=== PATIENT | female | born 1980 | race Caucasian/White ===

== ENCOUNTER 2019-06-29 13:10 | Outpatient (CLI) | payer OTHER, MEDICARE ==
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
--- NOTE | 2019-06-29 16:39 | Diagnostic Imaging Report ---
ERNESTO PARISH [facility] [address] [facility].[address] [address] Report Submission Date: Jun 29, 2019 4:35:42 PM CDT Patient Study Name: MISTY FEBRUARY Date: Jun 29, 2019 3:02:05 PM CDT Modality Type: DX Gender: F Description: L SPINE 4 VIEWS : 81 Institution: [facility] Physician: ERNESTO PARISH Exam: Lumbar spine. History: Pain. AP, lateral, both oblique views and L5-S1 spot view of the lumbar spine are submitted. Interbody fusion of L4-5 and L5-S1 levels are noted. The remaining vertebral body heights and intervertebral disc spaces are adequately maintained and in good alignment. No spondylolisthesis or spondylolysis is identified. Impression: Interbody fusion of L4-5 and L5-S1 levels. No other bony abnormalities are noted. Electronically signed on Jun 29, 2019 4:35:42 PM CDT by: Bart SPARROW
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
== END 2019-06-29 13:50 ==
LOC: OUT 13:10
PROVIDERS: ATTEND Nurse Practitioner Adult Health
DX: M54.16 Radiculopathy, lumbar region (principal); M47.817 Spondylosis without myelopathy or radiculopathy, lumbosacral region; M54.2 Cervicalgia; G44.89 Other headache syndrome
CPT/HCPCS: 72170; 99203

== ENCOUNTER 2019-07-05 22:13 | Emergency (ER) | payer OTHER, MEDICARE ==
[2019-07-05 22:47] VITALS: BP 112/68
[2019-07-06] MEDS: MAG HYDROX/ALUMINUM HYD/SIMETH 30 ML, Lidocaine 2% Viscous 15 ML PO ONE ×2
--- NOTE | 2019-07-06 00:46 | ED Physician Documentation ---
General Adult - HISTORIAN Historian: patient - HPI Stated Complaint: abd pain Chief Complaint: General Adult Timing: still present Severity: moderate Further Comments: yes (Pt is a 38 yo female with abd pain.) - ROS CONST: no problems EYES/ENT: none CVS/RESP: none GI/: abdominal pain, nausea MS/SKIN/LYMPH: none - PAST HX Past History: other (anxiety, chronic pain, depression, GERD) Allergies/Adverse Reactions: Allergies Allergy/AdvReac Type Severity Reaction Status Date / Time diphenhydramine Allergy Verified 07/05/19 22:42 [From Benadryl] iodine Allergy Verified 07/05/19 22:42 Home Medications: Ambulatory Orders Medication Instructions Recorded Alprazolam [Xanax] 1 tab PO PRN PRN 07/05/19 Hydromorphone HCl [Dilaudid] 1 tab PO PRN PRN 07/05/19 Ibuprofen [Advil] 1 tab PO PRN PRN 07/05/19 Omeprazole 2 cap PO DAILY 07/05/19 - SOCIAL HX Smoking History: cigarettes - FAMILY HX Family History: No - VITAL SIGNS Vital Signs: Vital Signs Temp Pulse Resp BP Pulse Ox 98.4 F 64 16 112/68 99 07/05/19 22:30 07/05/19 22:30 07/05/19 22:30 07/05/19 22:30 07/05/19 22:30 - REVIEWED ASSESSMENTS Nursing Assessment Reviewed: Yes Vitals Reviewed: Yes Progress - Progress Progress: GI cocktail no change x-ray abd: L4 through S1 interbody fusions, cholecystectomy clips, and mild constipation are observed. There is no evidence of bowel obstruction. Indeterminate pelvic calcifications are too small to characterize. Rx Magnesium Citrate (for constipation). Drink 1/2 bottle. If no bowel movement after 6 hours, repeat drinking 1/2 bottle. (bottle sent home with pt.) ED Results Lab/Radiology - Orders Orders: ED Orders Category Date Time Status Place IV Lock 1T Care 07/05/19 22:47 Active CBC/PLATELET/DIFF Routine Lab 07/05/19 23:10 Received CMP Routine Lab 07/05/19 23:10 Received LIPASE Stat Lab 07/05/19 23:10 Received URINALYSIS Routine Lab 07/05/19 Ordered URINE HCG Stat Lab 07/05/19 Uncollected Mag Hydrox/Aluminum Hyd/Simeth [Mylanta] 30 ml Med 07/05/19 23:53 Discontinued Lidocaine 2% Viscous [Xylocaine 2% Viscous] 15 ml PO NOW General Adult Physical Exam - PHYSICAL EXAM GENERAL APPEARANCE: mild distress EENT: pharynx normal NECK: normal inspection, supple RESPIRATORY: no resp distress, chest non-tender, breath sounds normal CVS: reg rate & rhythm, heart sounds normal ABDOMEN: soft, tenderness (RUQ), decreased BS BACK: normal inspection, no CVA tenderness SKIN: warm/dry, normal color EXTREMITIES: non-tender, normal range of motion, no evidence of injury NEURO: oriented X3, motor nml, sensation nml Discharge Clincal Impression: abd pain, constipation Referrals: Anne Marie Richard NP [Primary Care Provider] - Condition: Stable Disposition: 01 HOME, SELF-CARE Decision to Admit: NO Decision Time: 01:35
--- NOTE | 2019-07-06 01:30 | Diagnostic Imaging Report ---
KD BAI [facility] [address] [facility] [address] [address] Report Submission Date: Jul 06, 2019 1:26:27 AM CDT Patient Study Name: MISTY FEBRUARY Date: Jul 06, 2019 12:45:47 AM CDT Modality Type: DX Gender: F Description: ABDOMEN 1VIEW : 81 Institution: [facility] Physician: KD BAI Single view abdomen History: Abdominal pain Findings: L4 through S1 interbody fusions, cholecystectomy clips, and mild constipation are observed. There is no evidence of bowel obstruction. Indeterminate pelvic calcifications are too small to characterize. Electronically signed on Jul 06, 2019 1:26:27 AM CDT by: Delta SPARROW
[2019-07-06] MEDS: MAGNESIUM CITRATE 296 ML BOTTLE PO ONE (01:40)
[2019-07-06 06:58] LABS: BASOPHILS % 0.8 % (0.0-1.5); NEUTROPHILS # 4.4 # k/uL (1.4-7.7)
[2019-07-06 06:59] LABS: eGFR (Non-African) > 60
[2019-07-06 07:06] LABS: APPEARANCE,URINE CLEAR (CLEAR); COLOR,URINE YELLOW (YELLOW); OCCULT BLOOD,URINE 3+ (NEGATIVE); UROBILINOGEN URINE 0.2 Eu (0.2-1.0)
== END 2019-07-06 01:44 | disposition home or self-care (01) ==
LOC: ED 22:13
DX: K59.00 Constipation, unspecified (principal)
CPT/HCPCS: 74018; 80053; 81002; 81025; 83690; 85025; 99284; A9270-GY; S1016

== ENCOUNTER 2019-08-08 14:32 | Outpatient (CLI) | payer OTHER, MEDICARE ==
[2019-08-08 16:24] LABS: BASOPHILS % 0.5 % (0.0-1.5); NEUTROPHILS # 4.4 # k/uL (1.4-7.7)
[2019-08-08 16:38] LABS: eGFR (Non-African) > 60
== END 2019-08-08 15:00 ==
LOC: OUT 14:32
PROVIDERS: ATTEND Physical Medicine & Rehabilitation
DX: M99.15 Subluxation complex (vertebral) of pelvic region (principal); M47.814 Spondylosis without myelopathy or radiculopathy, thoracic region; G44.89 Other headache syndrome
CPT/HCPCS: 36415; 80053; 80307; 85025; 99202

== ENCOUNTER 2019-08-14 11:43 | Day surgery (SDC) | payer OTHER, MEDICARE ==
[~2019-08-14 11:43] MED LIST: DEXAMETHASONE SODIUM PHOSPHATE 10 MG/ML VIAL ONE; KETOROLAC TROMETHAMINE 30 MG/1ML VIAL ONE; LACTATED RINGERS 1,000 ML IV.SOLN IV ONE; LIDOCAINE HCL 2% PF 100MG/5ML VIAL IJ ONE; MIDAZOLAM HCL 2 MG/2 ML VIAL ONE; ONDANSETRON HCL/PF 4 MG/ 2ML VIAL ONE; PROPOFOL 200 MG/20 ML VIAL IV ONE; SEVOFLURANE 250 ML LIQUID IH ONE; ePHEDrine SULFATE 50 MG/1 ML IVP ONE; fentaNYL CITRATE/PF 100 MCG/2 ML INJ. ONE
== END 2019-08-14 14:50 | disposition home or self-care (01) ==
LOC: OPSURG 11:43
PROVIDERS: ATTEND Chiropractor
DX: M99.05 Segmental and somatic dysfunction of pelvic region (principal); M99.06 Segmental and somatic dysfunction of lower extremity; M70.61 Trochanteric bursitis, right hip; M47.27 Other spondylosis with radiculopathy, lumbosacral region; M47.21 Other spondylosis with radiculopathy, occipito-atlanto-axial region; M47.814 Spondylosis without myelopathy or radiculopathy, thoracic region
CPT/HCPCS: 22505; 27198; 27275; J1885; J2001; J2250; J2405; J2704; J3010; J7120

== ENCOUNTER 2019-08-15 11:56 | Day surgery (SDC) | payer OTHER, MEDICARE ==
[~2019-08-15 11:56] MED LIST changes: -ePHEDrine SULFATE 50 MG/1 ML IVP ONE
== END 2019-08-15 15:03 | disposition home or self-care (01) ==
LOC: OPSURG 11:56
PROVIDERS: ATTEND Chiropractor
DX: M99.05 Segmental and somatic dysfunction of pelvic region (principal); M70.61 Trochanteric bursitis, right hip; M99.06 Segmental and somatic dysfunction of lower extremity; M47.27 Other spondylosis with radiculopathy, lumbosacral region; M47.21 Other spondylosis with radiculopathy, occipito-atlanto-axial region; M47.814 Spondylosis without myelopathy or radiculopathy, thoracic region
CPT/HCPCS: 22505; 27198; 27275; J1885; J2001; J2250; J2405; J2704; J3010; J7120

== ENCOUNTER 2019-08-16 10:44 | Day surgery (SDC) | payer OTHER, MEDICARE ==
[~2019-08-16 10:44] MED LIST changes: +ePHEDrine SULFATE 50 MG/1 ML IVP ONE
== END 2019-08-16 13:45 | disposition home or self-care (01) ==
LOC: OPSURG 10:44
PROVIDERS: ATTEND Chiropractor
DX: M99.05 Segmental and somatic dysfunction of pelvic region (principal); M99.06 Segmental and somatic dysfunction of lower extremity; M70.61 Trochanteric bursitis, right hip; M47.27 Other spondylosis with radiculopathy, lumbosacral region; M47.21 Other spondylosis with radiculopathy, occipito-atlanto-axial region; M47.814 Spondylosis without myelopathy or radiculopathy, thoracic region
CPT/HCPCS: 22505; 27198; 27275; J1885; J2001; J2250; J2405; J2704; J3010; J7120

== ENCOUNTER 2019-08-22 14:48 | Outpatient (CLI) | payer OTHER, MEDICARE ==
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
== END 2019-08-22 16:20 | disposition home or self-care (01) ==
LOC: OUT 14:48
PROVIDERS: ATTEND Physical Medicine & Rehabilitation
DX: G89.4 Chronic pain syndrome (principal); M54.16 Radiculopathy, lumbar region; M46.96 Unspecified inflammatory spondylopathy, lumbar region; M54.2 Cervicalgia; R51 Headache; F11.20 Opioid dependence, uncomplicated
CPT/HCPCS: 99214

== ENCOUNTER 2019-09-12 15:19 | Outpatient (CLI) | payer OTHER, MEDICARE ==
--- NOTE | 2019-09-12 16:39 | Diagnostic Imaging Report ---
PATIENT MR#: [id number] PATIENT PATIENT NAME: MISTYFebruary DATE OF : 1980 REFERRING PHYSICIAN: Edenilson Del Rio EXAM DATE: 09/12/2019 ACCESSION NUMBER: [id number] EXAM DESCRIPTION: US U OR L EXT VEINS UNILAT Exam: Left lower extremity venous Doppler study. History: Pain in left calf. Doppler interrogation and color Doppler imaging of the venous structures in the left lower extremity are submitted. Spectral Doppler analysis demonstrates spontaneous and augmentable venous flow. Color Doppler imagin g reveals no thrombus formation. Impression: No sonographic evidence of deep vein thrombosis. Read by: Dr. Bart Ramirez Transcribed by: Transcribed Date: Electronically signed by: Dr. Bart Ramirez Date signed: 09/12/2019 4:38:30 PM
== END 2019-09-12 15:29 | disposition home or self-care (01) ==
LOC: RAD 15:19
PROVIDERS: ATTEND Specialist
DX: M99.05 Segmental and somatic dysfunction of pelvic region (principal)
CPT/HCPCS: 93971

== ENCOUNTER 2019-09-19 14:10 | Outpatient (CLI) | payer OTHER, MEDICARE ==
--- NOTE | 2019-09-28 16:17 | OP Clinic Progress Note ---
DATE OF VISIT: 09/19/2019 CHIEF COMPLAINT: 1. Low back pain. 2. Neck pain. HISTORY OF PRESENT ILLNESS: Efderica is a 38-year-old female patient of myself and Dr. Wiggins as well as Dr. Mcmahon, here for follow up. The patient underwent JENSEN on 08/14/2019, 08/15/2019 and 08/16/2019 to treat her pain symptoms. The patient is telling me today that she is overall 40% improved since the JENSEN. She does still have some residual neck and low back pain. However, she is still undergoing physical therapy as ordered postoperatively. As a matter of fact, they have extended the amount of physical therapy that she can have. The patient denies any significant changes in her neck or low back pain symptoms. She was placed on OxyContin and tramadol at last visit and is doing well with this. She denies any medication side effects or concerns. She continues to work with her psychiatrist to wean her Xanax dosing. PFSH: Past medical, family and social history was reviewed. REVIEW OF SYSTEMS: ROS from date of service 06/29/2019 was reviewed and remains unchanged. OBJECTIVE: General: This is a well-developed, well-nourished female patient presenting in no acute distress. Vital Signs: The patient weighs 158 pounds today, temperature is 97.3, pulse 82, respiratory rate 14, blood pressure 112/73 with an SaO2 of 97% on room air. She is rating her pain 6/10 today. Psych: She is alert and oriented x3. She is calm, pleasant and cooperative. HEENT: She is normocephalic and atraumatic. Sclerae clear. Musculoskeletal: The patient continues to have full cervical range of motion. She has mild generalized tenderness to palpation over the cervical paraspinals. Upper extremity strength remains equal and strong in all areas, graded 5/5 bilaterally. The patient also has tenderness to palpation about the L3-L4, L4- L5, L5-S1 paramidline, as well as in bilateral lumbar paraspinals. Her SI joints are only mildly tender on exam today. Lower extremity strength is equal and strong in all areas rated 5/5 today. Neurologic: Cranial nerves II through XII are grossly intact. Sensation to light touch is intact in bilateral upper and lower extremities. The patient walks with a steady gait. ASSESSMENT: 1. Chronic lumbago. 2. Lumbar radiculitis. 3. Lumbar facet arthrosis. 4. Cervicalgia. 5. Cervicogenic headaches. 6. Chronic pain syndrome. 7. Opioid use disorder. PLAN: 1. I have refilled the patient's OxyContin 20 mg q 12h, dispense #60 with no refills. 2. I have refilled her tramadol 50 mg t.i.d., dispense #90 with no refills. 3. The patient is to continue physical therapy throughout the duration that is ordered. 4. We will follow the patient up in one month or sooner if necessary. At that time, we will determine if we should move forward with some interventions such as a spinal cord stimulator trial or facet joint injections with RFA in mind. The patient did verbalize understanding and agreed to the current treatment plan. DANNY Bradfordurse Practitioner /[employer] [id number] [email or web address] cc: [facility] Phone number: [phone] KYARA
== END 2019-09-19 15:10 ==
LOC: OUT 14:10
PROVIDERS: ATTEND Nurse Practitioner Adult Health
DX: M47.26 Other spondylosis with radiculopathy, lumbar region (principal); G44.89 Other headache syndrome; G89.4 Chronic pain syndrome; F11.10 Opioid abuse, uncomplicated
CPT/HCPCS: 99213

== ENCOUNTER 2019-10-17 14:55 | Outpatient (CLI) | payer OTHER, MEDICARE ==
--- NOTE | 2019-10-30 15:24 | OP Clinic Progress Note ---
DATE OF VISIT: 10/17/2019 CHIEF COMPLAINT: 1. Low back pain. 2. Neck pain. HISTORY OF PRESENT ILLNESS: Federica is a 39-year-old female patient of myself, Dr. Wiggins as well as Dr. Mcmahon here for followup and medication refill. The patient underwent JENSEN on 08/14, 08/15 and 08/16/2019 to treat her pain symptoms. The patient is telling me that she is overall 50 to 60% improved since JENSEN. The patient is having some residual thoracic pain today. The patient continues to do physical therapy two times per week. Today I am ordering that physical therapy include deep tissue ultrasound and E-Stim to her treatments. The patient continues on OxyContin and tramadol with improvement in her pain symptoms. She denies any medication side effects or concerns. She continues to work with her psychiatrist to wean her Xanax dosing. PFSH: Reviewed and unchanged. REVIEW OF SYSTEMS: Review of systems from date of service 06/29/2019 was reviewed and remains unchanged. OBJECTIVE: General: This is a well-developed, well-nourished female presenting in no acute distress. Vital Signs: The patient weighs 158 pounds. Temperature is 98. Pulse is 98. Respiratory rate is 16. Blood pressure is 108/81 with an SaO2 of 96% on room air. She is rating her pain a 4/10 today. Psych: She is alert and oriented x 3. She is calm, pleasant and cooperative. HEENT: She is normocephalic and atraumatic. Pupils are equal and round without miosis. Sclerae clear. Musculoskeletal: The patient has just mild tenderness to palpation over the cervical paraspinals. She also has some tenderness to palpation over the [id number] thoracic spine and paraspinals including the rhomboids. She has mild tenderness to palpation over the lower lumbar facets at the L3-4, L4-5 and L5-S1 as well as over the bilateral lumbar paraspinals. Her SI joints are only mildly tender on today's exam. Neuro: Cranial nerves II through XII are grossly intact. Sensation to light touch is intact bilaterally in the upper and lower extremities. The patient walks with a steady gait. IMPRESSION: 1. Chronic lumbago. 2. Lumbar radiculitis. 3. Lumbar facet arthrosis. 4. Cervicalgia. 5. Cervicogenic headaches. 6. Opioid pain syndrome. 7. Opioid use disorder. PLAN: 1. I have refilled the patient's OxyContin 20 mg every 12 hours, dispense #60 with no refills as well as tramadol 50 mg t.i.d. dispense #90 with no refills. 2. The patient is to continue physical therapy with the addition of deep tissue ultrasound and E-Stim. 3. We will follow the patient up in one month or sooner if needed. The patient verbalizes understanding and agrees to the current treatment plan. DANNY Bradfordurse Practitioner /[employer] [id number] jrd cc: [facility], [facility], [place]
== END 2019-10-17 15:55 ==
LOC: OUT 14:55
PROVIDERS: ATTEND Nurse Practitioner Adult Health
DX: M46.96 Unspecified inflammatory spondylopathy, lumbar region (principal); M54.16 Radiculopathy, lumbar region; M54.2 Cervicalgia; F11.90 Opioid use, unspecified, uncomplicated
CPT/HCPCS: 99213

== ENCOUNTER 2019-11-14 13:35 | Outpatient (CLI) | payer OTHER, MEDICARE ==
--- NOTE | 2019-11-16 14:44 | OP Clinic Progress Note ---
DATE OF VISIT: 11/14/2019 CHIEF COMPLAINT: 1. Low back pain. 2. Neck pain. HISTORY OF PRESENT ILLNESS: Federica is a 39-year-old female patient of myself, Dr. Wiggins and Dr. Mcmahon, here for followup and medication refill. The patient underwent JENSEN on 08/14/2019, 08/15/2019, and 08/16/2019 to treat her pain symptoms. The patient has done very well post JENSEN stating that her pain is at least 60% improved. The patient continues in physical therapy and is doing very well with this. The patient tells me that she has had a really vague pain in the left upper quadrant wrapping around to her low lateral ribs. She tells me that this pain has been present for the last four to five months. She denies any associated symptoms. She has not seen her primary care physician about this, and I have recommended that she do so. If there is no underlying medical reason for this pain, we could consider doing an intercostal nerve block. The patient continues on OxyContin and tramadol with improvement in her pain symptoms. She denies any medication side effects concern at this time. The patient does continue to work with a psychiatrist to wean her Xanax dosing. PFSH: Reviewed and unchanged. REVIEW OF SYSTEMS: ROS from date of service 06/29/2019 was reviewed and remains unchanged. OBJECTIVE: General: This is a well-developed, well-nourished female patient presenting in no acute distress. Vital Signs: The patient weighs 156 pounds. Temperature is 98.2, pulse 95, respiratory rate 16, blood pressure 129/80 with an SaO2 of 97% on room air. Psych: She is alert and oriented x3. She is calm, pleasant and cooperative. HEENT: She is normocephalic and atraumatic. Pupils are equal and round without miosis. Sclerae clear. Musculoskeletal: The patient has mild tenderness to palpation over the cervical paraspinals. She also has some tenderness to palpation over the [id number] thoracic spine and paraspinals including the rhomboids. She has mild tenderness to palpation over the lower lumbar facets at the L3-L4, L4-L5 and L5-S1 levels as well as the lumbar paraspinals. Her SI joints are only mildly tender on today's exam. Neurologic: Cranial nerves II through XII are grossly intact. The patient walks with a steady gait. ASSESSMENT: 1. Chronic lumbago. 2. Lumbar radiculitis. 3. Lumbar facet arthrosis. 4. Cervicalgia. 5. Cervicogenic headaches. 6. Chronic pain syndrome. 7. Opioid use disorder. 8. Left upper quadrant pain. PLAN: 1. Today I have refilled the patient's OxyContin 20 mg q.12h, dispense #60 with no refills as well as tramadol 50 mg t.i.d., dispense #90 with no refills. 2. The patient is to continue physical therapy at the therapist's discretion. 3. The patient is to follow up with her PCP regarding left upper quadrant pain. If there is no underlying medical cause, we could consider doing intercostal nerve blocks. 4. The patient is to follow up in a month or sooner if needed. The patient verbalizes understanding and agrees with the current treatment plan. DANNY Bradfordurse Practitioner /[employer] [id number] cc: NICOLAS Casillas MTDD
== END 2019-11-14 14:35 ==
LOC: OUT 13:35
PROVIDERS: ATTEND Nurse Practitioner Adult Health
DX: M47.896 Other spondylosis, lumbar region (principal); M54.16 Radiculopathy, lumbar region; M54.2 Cervicalgia; G89.4 Chronic pain syndrome; F11.90 Opioid use, unspecified, uncomplicated; R10.12 Left upper quadrant pain
CPT/HCPCS: 99213